=== PATIENT | female | born 1980 | race American Indian/Alaskan Native ===

== ENCOUNTER 2018-07-27 12:15 | Emergency (ER) | payer OTHER ==
--- NOTE | 2018-07-27 12:37 | EDM.PDOC ---
ED HPI GENERAL MEDICAL PROBLEM - General Chief Complaint: Skin Complaint Stated Complaint: PAIN SHINGLES Time Seen by Provider: 07/27/18 12:30 Source of Information: Reports: Patient History Limitations: Reports: No Limitations - History of Present Illness INITIAL COMMENTS - FREE TEXT/NARRATIVE: Patient developed painful shingles rash on 07/22/18, was prescribed Valtrex and Tramadol on 07/25/18. Since 07/25 patient has been having tremors and generalized muscle and joint pain. Also had one syncopal episode. Patient believes she may be having a reaction to the Valtrex. Location: Reports: Generalized Severity: Moderate (skin)midchest area Pain Score (Numeric/FACES): 9 - Related Data Allergies Allergy/AdvReac Type Severity Reaction Status Date / Time No Known Allergies Allergy Verified 07/27/18 12:28 Home Meds: Home Meds Acetaminophen/HYDROcodone [[place] 325-5 MG] 1 - 2 tab PO Q6H PRN #20 tab [Rx] buPROPion HCl [Wellbutrin SR] 150 mg PO BEDTIME 07/27/18 [History] valACYclovir [Valtrex] 1,000 mg PO DAILY 07/27/18 [History] Past Medical History Psychiatric History: Reports: Anxiety - Infectious Disease History Infectious Disease History: Reports: Shingles Social & Family History - Tobacco Use Smoking Status *Q: Current Every Day Smoker Tobacco Use Within Last Twelve Months: Cigarettes ED ROS GENERAL - Review of Systems Review Of Systems: See Below Constitutional: Reports: No Symptoms HEENT: Reports: No Symptoms Respiratory: Reports: No Symptoms Cardiovascular: Reports: No Symptoms Endocrine: Reports: No Symptoms GI/Abdominal: Reports: No Symptoms : Reports: No Symptoms Musculoskeletal: Reports: Joint Pain, Muscle Pain Skin: Reports: Rash (shingles right chest wall) Neurological: Reports: Tremors Psychiatric: Reports: Anxiety Hematologic/Lymphatic: Reports: No Symptoms Immunologic: Reports: No Symptoms ED EXAM, SKIN/RASH Exam: See Below Exam Limited By: No Limitations General Appearance: Alert, WD/WN, No Apparent Distress, Anxious Ears: Normal External Exam Throat/Mouth: No Airway Compromise Head: Atraumatic, Normocephalic Neck: Supple Respiratory/Chest: No Respiratory Distress, Lungs Clear, Normal Breath Sounds Cardiovascular: Regular Rate, Rhythm, No Murmur GI/Abdominal: No Distention Back Exam: Full Range of Motion Extremities: Normal Inspection, Normal Range of Motion, Normal Capillary Refill Neurological: Alert, Normal Cognition, No Motor/Sensory Deficits Psychiatric: Normal Affect, Normal Mood Skin: Warm, Dry, Intact, Other (mild vesicular rash right chest wall) Course - Vital Signs Last Recorded V/S: Last Vital Signs Temp 36.6 C 07/27/18 12:15 Pulse 62 07/27/18 12:15 Resp 17 07/27/18 12:15 BP 110/57 L 07/27/18 12:15 Pulse Ox 100 07/27/18 12:15 - Orders/Labs/Meds Labs: Laboratory Tests 07/27/18 07/27/18 07/27/18 Range/Units 12:45 12:45 12:45 WBC 4.1 L (4.5-12.0) X10-3/uL RBC 4.43 (3.23-5.20) x10(6)uL Hgb 13.1 (11.5-15.5) g/dL Hct 39.4 (30.0-51.3) % MCV 88.9 (80-96) fL MCH 29.5 (27.7-33.6) pg MCHC 33.2 (32.2-35.4) g/dL RDW 12.6 (11.5-15.5) % Plt Count 166 (125-369) X10(3)uL MPV 9.6 (7.4-10.4) fL Neut % (Auto) 62.0 (46-82) % Lymph % (Auto) 30.8 (13-37) % [place] % (Auto) 4.6 (4-12) % Eos % (Auto) 2 (1.0-5.0) % Baso % (Auto) 1 (0-2) % Neut # (Auto) 2.5 (1.6-8.3) # Lymph # (Auto) 1.3 (0.6-5.0) # [place] # (Auto) 0.2 (0.0-1.3) # Eos # (Auto) 0.1 (0.0-0.8) # Baso # (Auto) 0.0 (0.0-0.2) # Sodium 139 (135-145) mmol/L Potassium 3.7 (3.5-5.3) mmol/L Chloride 103 (100-110) mmol/L Carbon Dioxide 29 (21-32) mmol/L BUN 8 (7-18) mg/dL Creatinine 0.6 (0.55-1.02) mg/dL Est Cr Clr Drug Dosing TNP Estimated GFR (MDRD) > 60 (>60) BUN/Creatinine Ratio 13.3 (9-20) Glucose 103 (80-116) mg/dL Calcium 8.2 L (8.6-10.2) mg/dL Total Bilirubin 0.3 (0.1-1.3) mg/dL AST 12 (5-25) IU/L ALT 19 (12-36) U/L Alkaline Phosphatase 59 (56-112) IU/L Creatine Kinase 68 (60-160) IU/L Total Protein 7.0 (6.0-8.0) g/dL Albumin 3.4 L (3.5-5.2) g/dL Globulin 3.6 g/dL Albumin/Globulin Ratio 0.9 Meds: Medications Discontinued Medications Generic Name Dose Route Start Last Admin Trade Name Freq PRN Reason Stop Dose Admin Ketorolac Tromethamine 60 mg 07/27/18 13:20 07/27/18 13:23 Toradol IM 07/27/18 13:21 60 mg ONETIME ONE Administration Lorazepam 1 mg 07/27/18 12:44 07/27/18 13:24 Ativan PO 07/27/18 12:45 1 mg ONETIME ONE Administration - Re-Assessments/Exams Free Text/Narrative Re-Assessment/Exam: 07/27/18 13:59 Minimal improvement after Toradol and Ativan. I have advised patient to discontinue the Tramadol due to increase risk of seizures with concomitant use of Wellbutrin. Arthralgias most likely due to side effect of Valtrex. I will prescribe [place], but patient is advised not to take Ativan with this medication due to risk of respiratory depression. Departure - Departure Time of Disposition: 14:02 Disposition: Home, Self-Care 01 Condition: Good Clinical Impression: Arthralgia Qualifiers: Joint pain location: unspecified Qualified Code(s): M25.50 - Pain in unspecified joint - Discharge Information *PRESCRIPTION DRUG MONITORING PROGRAM REVIEWED*: Yes *COPY OF PRESCRIPTION DRUG MONITORING REPORT IN PATIENT DAYO: No Prescriptions: Acetaminophen/HYDROcodone [[place] 325-5 MG] 1 - 2 tab PO Q6H PRN #20 tab PRN Reason: Pain Instructions: Joint Pain, [id number] Forms: ED Department Discharge Additional Instructions: Discontinue the Tramadol due to increase risk of seizures. Joint pain is most likely due to side effect of Valtrex. Do not to take Ativan with the [place] due to risk of respiratory depression. However, you may take Ibuprofen with this medication as needed for pain. Follow up with your primary physician in 2-3 days. Return to the ER as needed.
[2018-07-27] MEDS ORDERED: LORazepam 1 MG Tab PO ONE (12:44)
[2018-07-27] MEDS ORDERED: Ketorolac 60 MG/2 ML SDV IM ONE (13:20)
== END 2018-07-27 14:18 | disposition home or self-care (01) ==
LOC: FB.ED 12:15
DX: M25.50 Pain in unspecified joint (principal); R21 Rash and other nonspecific skin eruption; F17.210 Nicotine dependence, cigarettes, uncomplicated
CPT/HCPCS: 36415; 80053; 82550; 85025; 96372; 99283; A9270-GY; J1885

== ENCOUNTER 2019-11-21 20:25 | Emergency (ER) | payer OTHER ==
[2019-11-21] MEDS ORDERED: Acetaminophen/HYDROcodone 325-5 MG Tab PO ONE (20:26)
[2019-11-21] MEDS ORDERED: Ondansetron 4 MG/2 ML SDV IM ONE (21:30)
[2019-11-21] MEDS ORDERED: Ketorolac 60 MG/2 ML SDV IM ONE (21:30)
[2019-11-21] MEDS ORDERED: Penicillin V Potassium 500 MG Tab PO ONE (21:31)
--- NOTE | 2019-11-21 21:50 | EDM.PDOC ---
ED HPI GENERAL MEDICAL PROBLEM - General Chief Complaint: General Stated Complaint: TOOTH PAIN; NAUSEA Time Seen by Provider: 11/21/19 21:47 Source of Information: Reports: Patient History Limitations: Reports: No Limitations - History of Present Illness INITIAL COMMENTS - FREE TEXT/NARRATIVE: Presents with dental pain x 2 months, worse x 2 days. Missed a DDS appt yesterday for root canal due to adverse weather conditions (izz), rescheduled for 11/25/19. Has been taking Tylenol w/o improvement. Also complains of typical migraine headache, onset today, associated with photophobia and N/V. Denies fevers. 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 Denies: NSAIDS - Related Data Allergies Allergy/AdvReac Type Severity Reaction Status Date / Time No Known Allergies Allergy Verified 11/21/19 20:51 Home Meds: Home Meds Acetaminophen/HYDROcodone [[place] 325-5 MG] 1 - 2 tab PO Q6H PRN #16 tab [Rx] Penicillin V Potassium 500 mg PO Q6HR #40 tab 11/21/19 [Rx] buPROPion [buPROPion XL] 300 mg PO DAILY 11/21/19 [History] Past Medical History MEDICATION AID History: Reports: Neurological History: Reports: Migraines Psychiatric History: Reports: Anxiety Dermatologic History: Reports: Other (See Below) Other Dermatologic History: shingles - Infectious Disease History Infectious Disease History: Reports: Shingles Social & Family History - Family History Family Medical History: Noncontributory - Caffeine Use Caffeine Use: Reports: Coffee, Soda ED ROS GENERAL - Review of Systems Review Of Systems: Comprehensive ROS is negative, except as noted in HPI. ED EXAM, GENERAL - Physical Exam Exam: See Below Exam Limited By: No Limitations General Appearance: Alert, WD/WN, No Apparent Distress Eye Exam: Bilateral Eye: EOMI, PERRL Throat/Mouth: No Airway Compromise, Other (Right upper 2nd molar is fractured and tender, no gingival swelling) Head: Atraumatic, Normocephalic Neck: Supple, Full Range of Motion Respiratory/Chest: No Respiratory Distress Back Exam: Full Range of Motion Extremities: Normal Range of Motion Neurological: Alert, Normal Cognition Psychiatric: Normal Affect, Normal Mood Skin Exam: Warm, Dry, Intact Course - Vital Signs Last Recorded V/S: Last Vital Signs Temp 36.8 C 11/21/19 20:25 Pulse 71 11/21/19 20:25 Resp 18 11/21/19 20:25 BP 129/88 11/21/19 20:25 Pulse Ox 98 11/21/19 20:25 - Orders/Labs/Meds Orders: Active Orders 24 hr Category Date Time Status Penicillin V Potassium [Veetids] Med 11/21/19 22:30 Once 500 mg PO .ONCE ONE Medication Orders Penicillin V Potassium (Veetids) 500 mg PO .ONCE ONE Stop: 11/21/19 22:31 Last Admin: 11/21/19 22:24 Dose: 500 mg Meds: Medications Generic Name Dose Route Start Last Admin Trade Name Freq PRN Reason Stop Dose Admin Penicillin V Potassium 500 mg 11/21/19 22:30 11/21/19 22:24 Veetids PO 11/21/19 22:31 500 mg .ONCE ONE Administration Discontinued Medications Generic Name Dose Route Start Last Admin Trade Name Freq PRN Reason Stop Dose Admin Ketorolac Tromethamine 60 mg 11/21/19 21:30 11/21/19 22:04 Toradol IM 11/21/19 21:31 60 mg ONETIME ONE Administration Ondansetron HCl 4 mg 11/21/19 21:30 11/21/19 22:05 Zofran IM 11/21/19 21:31 4 mg ONETIME ONE Administration Penicillin V Potassium 500 mg 11/21/19 21:31 11/21/19 22:24 Veetids PO 11/21/19 21:32 Not Given .ONCE ONE - Re-Assessments/Exams Free Text/Narrative Re-Assessment/Exam: 11/21/19 22:29 Symptoms improved after Toradol 60mg IM and Zofran 4mg IM. Departure - Departure Time of Disposition: 22:33 Disposition: Home, Self-Care 01 Condition: Good Clinical Impression: Pain, dental Migraine Qualifiers: Migraine type: unspecified Status migrainosus presence: without status migrainosus Intractability: not intractable Qualified Code(s): G43.909 - Migraine, unspecified, not intractable, without status migrainosus - Discharge Information *PRESCRIPTION DRUG MONITORING PROGRAM REVIEWED*: Yes *COPY OF PRESCRIPTION DRUG MONITORING REPORT IN PATIENT DAYO: No Prescriptions: Penicillin V Potassium 500 mg PO Q6HR #40 tab Acetaminophen/HYDROcodone [[place] 325-5 MG] 1 - 2 tab PO Q6H PRN #16 tab PRN Reason: Pain Instructions: Migraine Headache, [id number], Diet and Dental Disease Referrals: Jay Haddad MD [Primary Care Provider] - Forms: ED Department Discharge Additional Instructions: Take Quin[place] and Penicillin as directed. Do not take Acetaminophen containing medication while taking Quinby. Keep the appointment with your Dentist on . Return to the ER if symptoms worsen. Sepsis Event Note - Focused Exam Vital Signs: Vital Signs Temp Pulse Resp BP Pulse Ox 11/21/19 20:25 36.8 C 71 18 129/88 98 Date Exam was Performed: 11/21/19 Time Exam was Performed: 22:29 - My Orders Last 24 Hours: My Active Orders 11/21/19 22:30 Penicillin V Potassium [Veetids] 500 mg PO .ONCE ONE - Assessment/Plan Last 24 Hours: My Active Orders 11/21/19 22:30 Penicillin V Potassium [Veetids] 500 mg PO .ONCE ONE
[2019-11-21] MEDS ORDERED: Penicillin V Potassium 250 MG Tab PO ONE (22:30)
== END 2019-11-21 22:50 | disposition home or self-care (01) ==
LOC: FB.ED 20:25
DX: G43.909 Migraine, unspecified, not intractable, without status migrainosus (principal); K03.81 Cracked tooth; F41.9 Anxiety disorder, unspecified; Z79.899 Other long term (current) drug therapy
CPT/HCPCS: 96372; 99283; A9270; J1885; J2405

== ENCOUNTER 2020-01-20 12:39 | Emergency (ER) | payer OTHER ==
[2020-01-20] MEDS ORDERED: Sodium Chloride 0.9% 10 ML Syringe FLUSH PRN (13:05)
[2020-01-20] MEDS ORDERED: Ketorolac 30 MG/ML SDV IVPUSH ONE (13:07)
[2020-01-20] MEDS ORDERED: Ondansetron 4 MG/2 ML SDV IVPUSH ONE (13:07)
[2020-01-20] MEDS ORDERED: SUMAtriptan 6 MG/0.5 ML SDV SUBCUT ONE (13:07)
[2020-01-20] MEDS ORDERED: Sodium Chloride 0.9% 1,000 ML IV SCH (13:15)
--- NOTE | 2020-01-20 14:03 | EDM.PDOC ---
ED HPI GENERAL MEDICAL PROBLEM - General Chief Complaint: Headache Stated Complaint: MIGRAINE Time Seen by Provider: 01/20/20 12:50 Source of Information: Reports: Patient History Limitations: Reports: No Limitations - History of Present Illness INITIAL COMMENTS - FREE TEXT/NARRATIVE: Patient presented to the ED because of bi temporal headache,05/13 with associated N/V . There is no fever or chills or neck stiffness. The last time she had an attack of migraine was almost a year ago. she took imitrex 50 mg po x1 without any relief. 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 Female Surgical History: Reports: Hysterectomy Social & Family History - Family History Family Medical History: Noncontributory - Tobacco Use Smoking Status *Q: Current Some Day Smoker Years of Tobacco use: 12 Packs/Tins Daily: 0.5 - Caffeine Use Caffeine Use: Reports: None - Recreational Drug Use Recreational Drug Use: No ED ROS GENERAL - Review of Systems Review Of Systems: See Below Constitutional: Reports: No Symptoms HEENT: Reports: No Symptoms Respiratory: Reports: No Symptoms Cardiovascular: Reports: No Symptoms Endocrine: Reports: No Symptoms GI/Abdominal: Reports: Nausea, Vomiting : Reports: No Symptoms Musculoskeletal: Reports: No Symptoms Skin: Reports: No Symptoms Neurological: Reports: No Symptoms Psychiatric: Reports: No Symptoms Hematologic/Lymphatic: Reports: No Symptoms - Physical Exam Exam: See Below Exam Limited By: No Limitations General Appearance: Alert, No Apparent Distress Ears: Normal External Exam, Normal Canal Nose: Normal Inspection, Normal Mucosa Throat/Mouth: Normal Inspection, Normal Lips, Normal Teeth Head Exam: Atraumatic, Normocephalic Neck: Normal Inspection, Supple, Non-Tender, Full Range of Motion Respiratory/Chest: No Respiratory Distress, Lungs Clear, Normal Breath Sounds Cardiovascular: Normal Peripheral Pulses, Regular Rate, Rhythm GI/Abdominal: Normal Bowel Sounds, Soft, Non-Tender, No Organomegaly (Female) Exam: Normal External Exam, Normal Speculum Exam, Normal Bimanual Exam Neuro Exam (Abbreviated): Alert, Oriented, CN II-XII Intact, Normal Cognition, Normal Gait Course - Vital Signs Text/Narrative:: labs reviewed and discussed with patient and verbalized full understanding NS 1 L bolus zofran 4 mg IV x1 toradol 30 mg IV x1 imitrex 6 mg SC x1 Last Recorded V/S: Last Vital Signs Temp 36.7 C 01/20/20 12:40 Pulse 88 01/20/20 12:40 Resp 18 01/20/20 12:40 BP 125/82 01/20/20 12:40 Pulse Ox 100 01/20/20 12:40 - Orders/Labs/Meds Orders: Active Orders 24 hr Category Date Time Status Sodium Chloride 0.9% [Normal Saline] 1,000 ml Med 01/20/20 13:15 Active IV ASDIRECTED Sodium Chloride 0.9% [Saline Flush] Med 01/20/20 13:05 Active 10 ml FLUSH ASDIRECTED PRN Saline Lock Insert [OM.PC] Routine Oth 01/20/20 13:05 Ordered Medication Orders Sodium Chloride (Normal Saline) 1,000 mls @ 999 mls/hr IV ASDIRECTED LUDIN Last Admin: 01/20/20 13:20 Dose: 999 mls/hr Sodium Chloride (Saline Flush) 10 ml FLUSH ASDIRECTED PRN PRN Reason: Keep Vein Open Last Admin: 01/20/20 12:55 Dose: 10 ml Labs: Laboratory Tests 01/20/20 01/20/20 Range/Units 13:19 13:19 WBC 9.0 (4.5-12.0) X10-3/uL RBC 4.73 (3.23-5.20) x10(6)uL Hgb 13.4 (11.5-15.5) g/dL Hct 41.1 (30.0-51.3) % MCV 86.9 (80-96) fL MCH 28.3 (27.7-33.6) pg MCHC 32.5 (32.2-35.4) g/dL RDW 12.9 (11.5-15.5) % Plt Count 198 (125-369) X10(3)uL MPV 9.3 (7.4-10.4) fL Neut % (Auto) 73.1 (46-82) % Lymph % (Auto) 18.5 (13-37) % [place] % (Auto) 6.1 (4-12) % Eos % (Auto) 1 (1.0-5.0) % Baso % (Auto) 2 (0-2) % Neut # (Auto) 6.6 (1.6-8.3) # Lymph # (Auto) 1.7 (0.6-5.0) # [place] # (Auto) 0.5 (0.0-1.3) # Eos # (Auto) 0.1 (0.0-0.8) # Baso # (Auto) 0.1 (0.0-0.2) # Sodium 142 (135-145) mmol/L Potassium 3.5 (3.5-5.3) mmol/L Chloride 102 (100-110) mmol/L Carbon Dioxide 30 (21-32) mmol/L BUN 13 (7-18) mg/dL Creatinine 0.6 (0.55-1.02) mg/dL Est Cr Clr Drug Dosing 114.40 mL/min Estimated GFR (MDRD) > 60 (>60) BUN/Creatinine Ratio 21.7 H (9-20) Glucose 105 (80-116) mg/dL Calcium 8.7 (8.6-10.2) mg/dL Meds: Medications Generic Name Dose Route Start Last Admin Trade Name Freq PRN Reason Stop Dose Admin Sodium Chloride 1,000 mls @ 999 mls/hr 01/20/20 13:15 01/20/20 13:20 Normal Saline IV 999 mls/hr ASDIRECTED LUDIN Administration Sodium Chloride 10 ml 01/20/20 13:05 01/20/20 12:55 Saline Flush FLUSH 10 ml ASDIRECTED PRN Administration Keep Vein Open Discontinued Medications Generic Name Dose Route Start Last Admin Trade Name [place] PRN Reason Stop Dose Admin Ketorolac Tromethamine 30 mg 01/20/20 13:07 01/20/20 13:24 Toradol IVPUSH 01/20/20 13:08 30 mg ONETIME ONE Administration Ondansetron HCl 4 mg 01/20/20 13:07 01/20/20 13:24 Zofran IVPUSH 01/20/20 13:08 4 mg ONETIME ONE Administration Sumatriptan Succinate 6 mg 01/20/20 13:07 01/20/20 13:23 Imitrex SUBCUT 01/20/20 13:08 6 mg ONETIME ONE Administration Departure - Departure Time of Disposition: 14:10 Disposition: Home, Self-Care 01 Condition: Good Clinical Impression: Migraine - Discharge Information Prescriptions: Ondansetron [Zofran ODT] 4 mg PO Q4H PRN #5 tab.dis PRN Reason: Nausea Referrals: Jay Haddad MD [Primary Care Provider] - Additional Instructions: please read discharge instructions on migraine increase oral fluids take ibuprofen 800 mg with tylenol 1000 mg every 8 hours as needed for pain imitrex 100 mg once daily, may take another 100 mg 2 hours after the first dose if your headache is not better. follow up as needed Sepsis Event Note - Evaluation Sepsis Screening Result: No Definite Risk - Focused Exam Vital Signs: Vital Signs Temp Pulse Resp BP Pulse Ox 01/20/20 12:40 36.7 C 88 18 125/82 100 Date Exam was Performed: 01/20/20 Time Exam was Performed: 13:58 - My Orders Last 24 Hours: My Active Orders 01/20/20 13:05 Sodium Chloride 0.9% [Saline Flush] 10 ml FLUSH ASDIRECTED PRN Saline Lock Insert [OM.PC] Routine 01/20/20 13:15 Sodium Chloride 0.9% [Normal Saline] 1,000 ml IV ASDIRECTED - Assessment/Plan Last 24 Hours: My Active Orders 01/20/20 13:05 Sodium Chloride 0.9% [Saline Flush] 10 ml FLUSH ASDIRECTED PRN Saline Lock Insert [OM.PC] Routine 01/20/20 13:15 Sodium Chloride 0.9% [Normal Saline] 1,000 ml IV ASDIRECTED
== END 2020-01-20 14:20 | disposition home or self-care (01) ==
LOC: FB.ED 12:39
DX: G43.909 Migraine, unspecified, not intractable, without status migrainosus (principal); F17.210 Nicotine dependence, cigarettes, uncomplicated; F41.9 Anxiety disorder, unspecified; F32.9 Major depressive disorder, single episode, unspecified; Z79.899 Other long term (current) drug therapy
CPT/HCPCS: 36415; 80048; 85025; 96361; 96372; 96374; 96375; 99284-25; J1885; J2405; J3030; J7030

== ENCOUNTER 2020-02-04 19:12 | Emergency (ER) | payer OTHER ==
[2020-02-04] MEDS ORDERED: Ketorolac 30 MG/ML SDV IVPUSH ONE (19:39)
[2020-02-04] MEDS ORDERED: SUMAtriptan 6 MG/0.5 ML SDV SUBCUT ONE (19:39)
[2020-02-04] MEDS ORDERED: hydrOXYzine HCl 50 MG/ML SDV IM ONE (19:39)
[2020-02-04] MEDS ORDERED: Sodium Chloride 0.9% 1,000 ML IV SCH (19:45)
--- NOTE | 2020-02-04 20:06 | EDM.PDOC ---
ED HPI GENERAL MEDICAL PROBLEM - General Stated Complaint: MIGRAINE Time Seen by Provider: 02/04/20 19:30 Source of Information: Reports: Patient History Limitations: Reports: No Limitations - History of Present Illness INITIAL COMMENTS - FREE TEXT/NARRATIVE: Patient presented to the ED because of headache behind the eyeball and anabaptist. Throbbing,/ with associated N/V. There is no associated fever,chills or neck stiffness. She took her imitrex and OTC tylenol without any relief. Headache Pain Score (Numeric/FACES): 5 - Related Data Allergies Allergy/AdvReac Type Severity Reaction Status Date / Time No Known Allergies Allergy Verified 02/04/20 19:49 Home Meds: Home Meds Ondansetron [Zofran ODT] 4 mg PO Q4H PRN #5 tab.dis 01/20/20 [Rx] SUMAtriptan [Imitrex] 100 mg PO Q4HR PRN 01/20/20 [History] buPROPion [Wellbutrin] 300 mg PO DAILY 01/20/20 [History] Butalb/Acetaminophen/Caffeine [Esgic 50-325-40 mg Tablet] 2 each PO Q6H PRN #30 tablet 02/04/20 [Rx] ClonazePAM [KlonoPIN] 0.5 mg PO DAILY 02/04/20 [History] SUMAtriptan [Imitrex] 6 mg SUBCUT ONETIME PRN #5 sdv 02/04/20 [Rx] hydrOXYzine pamoate [Vistaril] 50 mg PO Q6H PRN #30 cap 02/04/20 [Rx] Past Medical History - Past Health History Medical/Surgical History: Denies Medical/Surgical History HEENT History: Reports: Other (See Below) 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 Female Surgical History: Reports: Hysterectomy Social & Family History - Family History Family Medical History: Noncontributory - Caffeine Use Caffeine Use: Reports: None ED ROS GENERAL - Review of Systems Review Of Systems: See Below Constitutional: Reports: No Symptoms HEENT: Reports: No Symptoms Respiratory: Reports: No Symptoms Cardiovascular: Reports: No Symptoms Endocrine: Reports: No Symptoms GI/Abdominal: Reports: Nausea, Vomiting Musculoskeletal: Reports: No Symptoms, Neck Pain Skin: Reports: No Symptoms Neurological: Reports: Headache Psychiatric: Reports: No Symptoms Hematologic/Lymphatic: Reports: No Symptoms - Physical Exam Exam: See Below Exam Limited By: No Limitations General Appearance: Alert, No Apparent Distress Ears: Normal External Exam, Normal Canal Nose: Normal Inspection, Normal Mucosa Throat/Mouth: Normal Inspection, Normal Lips, Normal Teeth Head Exam: Atraumatic, Normocephalic Neck: Normal Inspection, Supple, Non-Tender, Full Range of Motion Respiratory/Chest: No Respiratory Distress, Lungs Clear, Normal Breath Sounds Cardiovascular: Normal Peripheral Pulses, Regular Rate, Rhythm, No Edema GI/Abdominal: Normal Bowel Sounds, Soft, Non-Tender, No Distention, No Abnormal Bruit Extremities: Normal Inspection Psychiatric: Normal Affect Skin Exam: Warm Course - Vital Signs Text/Narrative:: labs reviewed with the patient and verbalized full understanding NS 1 L bolus Vistaril 50 mg IM imitrex 6 mg SC x1 Last Recorded V/S: Last Vital Signs Temp 36.9 C 02/04/20 20:50 Pulse 67 02/04/20 20:50 Resp 16 02/04/20 20:50 BP 112/77 02/04/20 20:50 Pulse Ox 97 02/04/20 20:50 - Orders/Labs/Meds Labs: Laboratory Tests 02/04/20 02/04/20 Range/Units 19:52 19:52 WBC 7.9 (4.5-12.0) X10-3/uL RBC 4.22 (3.23-5.20) x10(6)uL Hgb 12.4 (11.5-15.5) g/dL Hct 36.2 (30.0-51.3) % MCV 85.7 (80-96) fL MCH 29.4 (27.7-33.6) pg MCHC 34.3 (32.2-35.4) g/dL RDW 13.0 (11.5-15.5) % Plt Count 212 (125-369) X10(3)uL MPV 9.3 (7.4-10.4) fL Neut % (Auto) 62.8 (46-82) % Lymph % (Auto) 30.2 (13-37) % [place] % (Auto) 4.8 (4-12) % Eos % (Auto) 1 (1.0-5.0) % Baso % (Auto) 1 (0-2) % Neut # (Auto) 4.9 (1.6-8.3) # Lymph # (Auto) 2.4 (0.6-5.0) # [place] # (Auto) 0.4 (0.0-1.3) # Eos # (Auto) 0.1 (0.0-0.8) # Baso # (Auto) 0.1 (0.0-0.2) # Sodium 142 (135-145) mmol/L Potassium 3.5 (3.5-5.3) mmol/L Chloride 104 (100-110) mmol/L Carbon Dioxide 29 (21-32) mmol/L BUN 10 (7-18) mg/dL Creatinine 0.7 (0.55-1.02) mg/dL Est Cr Clr Drug Dosing 98.05 mL/min Estimated GFR (MDRD) > 60 (>60) BUN/Creatinine Ratio 14.3 (9-20) Glucose 87 (80-116) mg/dL Calcium 7.7 L (8.6-10.2) mg/dL Meds: Medications Discontinued Medications Generic Name Dose Route Start Last Admin Trade Name Freq PRN Reason Stop Dose Admin Hydroxyzine HCl 50 mg 02/04/20 19:39 02/04/20 20:14 Vistaril IM 02/04/20 19:40 50 mg ONETIME ONE Administration Sodium Chloride 1,000 mls @ 999 mls/hr 02/04/20 19:45 02/04/20 19:45 Normal Saline IV 999 mls/hr ASDIRECTED LUDIN Administration Ketorolac Tromethamine 30 mg 02/04/20 19:39 02/04/20 20:14 Toradol IVPUSH 02/04/20 19:40 30 mg ONETIME ONE Administration Sumatriptan Succinate 6 mg 02/04/20 19:39 02/04/20 20:13 Imitrex SUBCUT 02/04/20 19:40 6 mg ONETIME ONE Administration Departure - Departure Time of Disposition: 21:00 Disposition: Home, Self-Care 01 Condition: Good Clinical Impression: Migraine - Discharge Information Prescriptions: Butalb/Acetaminophen/Caffeine [Esgic 50-325-40 mg Tablet] 2 each PO Q6H PRN #30 tablet PRN Reason: Headache hydrOXYzine pamoate [Vistaril] 50 mg PO Q6H PRN #30 cap PRN Reason: Headache SUMAtriptan [Imitrex] 6 mg SUBCUT ONETIME PRN #5 sdv PRN Reason: migraine Instructions: Subcutaneous Injection Instructions Using a Syringe and Vial, Migraine Headache Referrals: PCP,None [Primary Care Provider] - Forms: ED Department Discharge Additional Instructions: please read discharge instructions on migraine imitrex 6 mg subcutaneous once as needed whenever you have a migraine that you can't tolerate vistaril/hydroxyzine 50 mg every 6 hours as needed for nausea/vomiting,anxiety and sleep Esgig plus/butalbutal, take 2 tablets every 6 hours as needed for headache follow up as needed Sepsis Event Note - Focused Exam Date Exam was Performed: 02/05/20 Time Exam was Performed: 11:23
== END 2020-02-04 20:50 | disposition home or self-care (01) ==
LOC: FB.ED 19:12
DX: G43.909 Migraine, unspecified, not intractable, without status migrainosus (principal)
CPT/HCPCS: 36415; 80048; 85025; 96361; 96372; 96374; 99284; J1885; J3030; J3410; J7030

== ENCOUNTER 2022-01-09 17:38 | Emergency (ER) | payer OTHER ==
[2022-01-09] MEDS ORDERED: LORazepam 2 MG/ML SDV IM STA (20:06)
[2022-01-09] MEDS ORDERED: Ketorolac 30 MG/ML SDV IM STA (20:06)
[2022-01-09] MEDS ORDERED: Ondansetron 4 MG Tab.DIS PO ONE (20:06)
[2022-01-09] MEDS ORDERED: Acetaminophen/HYDROcodone 325-5 MG Tab PO STA (22:52)
[2022-01-09] MEDS ORDERED: Cyclobenzaprine 10 MG Tab PO STA (22:52)
== END 2022-01-09 23:00 | disposition home or self-care (01) ==
LOC: FB.ED 17:38
DX: S06.6X0A Traumatic subarachnoid hemorrhage without loss of consciousness, initial encounter (principal); S00.83XA Contusion of other part of head, initial encounter; Z72.0 Tobacco use; Y04.0XXA Assault by unarmed brawl or fight, initial encounter
CPT/HCPCS: 36415; 70450; 71100; 72072; 72100; 72125; 73562; 80053; 80307; 81001; 81025; 85025; 85610; 85730; 96372; 99285; A9270; J1885; J2060; Q0162

== ENCOUNTER 2025-02-23 13:21 | Emergency (ER) | payer OTHER ==
[2025-02-23 15:14] LABS: BASOPHILS ABSOLUTE AUTO 0.1 x10-3/uL (0.0-0.1); BASOPHILS PERCENT AUTO 0.9 % (0.2-1.5); EOSINOPHILS ABSOLUTE AUTO 0.2 x10-3/uL (0.0-0.8); EOSINOPHILS PERCENT AUTO 2.5 % (0.6-8.1); HEMATOCRIT 41.1 % (34.2-48.2); HEMOGLOBIN 13.7 g/dL (11.4-15.5); LYMPHOCYTES ABSOLUTE AUTO 2.4 x10-3/uL (1.0-4.4); LYMPHOCYTES PERCENT AUTO 25.8 % (18.4-52.1); MEAN CORPUSCULAR HEMOGLOBIN 27.4 pg (23.9-33.9); MEAN CORPUSCULAR HGB CONC 33.4 g/dL (31.9-34.8); MEAN CORPUSCULAR VOLUME 82.2 fL (76.7-100.5); MEAN PLATELET VOLUME 9.3 fL (7.1-12.4); MONOCYTES ABSOLUTE AUTO 0.6 x10-3/uL (0.3-1.0); MONOCYTES PERCENT AUTO 6.6 % (4.4-15.7); NEUTROPHILS ABSOLUTE AUTO 5.9 x10-3/uL (1.5-6.3); NEUTROPHILS PERCENT AUTO 64.2 % (30.8-76.2); PLATELET COUNT,PLT 219 x10(3)uL (151-488); RED CELL DISTRIBUTION WIDTH 15.1 % (12.3-16.5); WHITE BLOOD CELL COUNT,WBC 9.2 x10-3/uL (3.0-10.3)
[2025-02-23 15:20] LABS: ETHANOL BLOOD MEDICAL < 0.03 % (<0.03); LIPASE 21 U/L (16-77)
[2025-02-23 15:22] LABS: AMPHETAMINES SCREEN, URINE POSITIVE (NEGATIVE); BARBITURATE SCREEN,URINE NEGATIVE (NEGATIVE); BENZODIAZEPINES SCREEN,URINE NEGATIVE (NEGATIVE); METHADONE SCREEN, URINE NEGATIVE (NEGATIVE); METHAMPHETAMINE SCREEN, URINE POSITIVE (NEGATIVE); OXYCODONE SCREEN,URINE NEGATIVE (NEGATIVE); THC SCREEN,URINE POSITIVE (NEGATIVE)
[2025-02-23 15:23] LABS: BUPRENORPHINE SCREEN,URINE NEGATIVE (NEGATIVE)
[2025-02-23 15:28] LABS: ALANINE AMINOTRANSFERASE,ALT 29 U/L (12-36); ALBUMIN 3.7 g/dL (3.5-5.2); ALKALINE PHOSPHATASE 106 IU/L (56-112); ASPARTATE AMNIOTRANSFERASE,AST 19 IU/L (5-25); BILIRUBIN TOTAL 0.6 mg/dL (0.1-1.3); BLOOD UREA NITROGEN,BUN 11 mg/dL (7-18); BUN/CREATININE RATIO 13.8 (9-20); CARBON DIOXIDE,CO2 28 mmol/L (21-32); CHLORIDE,CL 104 mmol/L (100-110); CREATINE KINASE,CK 46 IU/L (60-160); CREATININE 0.8 mg/dL (0.55-1.02); ESTIMATED GFR 94 mL/min (>60); GLUCOSE RANDOM 106 mg/dL (80-116); MAGNESIUM 1.7 mg/dL (1.8-2.5); POTASSIUM,K 3.9 mmol/L (3.5-5.3); PROTEIN TOTAL,TP 7.4 g/dL (6.0-8.0); SODIUM,NA 139 mmol/L (135-145)
== END 2025-02-23 16:07 ==
LOC: FB.ED 13:21
DX: F15.10 Other stimulant abuse, uncomplicated (principal); F12.10 Cannabis abuse, uncomplicated; F41.1 Generalized anxiety disorder; Z79.899 Other long term (current) drug therapy
CPT/HCPCS: 36415; 80053; 80307; 82550; 83690; 83735; 84100; 85025; 99283; 99284; A9270

== ENCOUNTER 2025-02-24 02:51 | Emergency (ER) | payer OTHER ==
[2025-02-24] MEDS: Ketorolac 30 MG/ML SDV IM ONE (03:12)
[2025-02-24] MEDS: ClonazePAM 0.5 MG Tab PO ONE (04:19)
== END 2025-02-24 04:25 ==
LOC: FB.ED 02:51
DX: R07.9 Chest pain, unspecified (principal); F11.10 Opioid abuse, uncomplicated; Z79.899 Other long term (current) drug therapy; F17.210 Nicotine dependence, cigarettes, uncomplicated; Z90.710 Acquired absence of both cervix and uterus
CPT/HCPCS: 36415; 71045; 84484; 96372; 99285; A9270-GY; J1885

== ENCOUNTER 2025-03-02 03:57 | Emergency (ER) | payer OTHER ==
[2025-03-02] MEDS: hydrOXYzine HCl 50 MG/ML SDV IM ONE (04:26)
== END 2025-03-02 06:27 | disposition home or self-care (01) ==
LOC: FB.ED 03:57
DX: F41.0 Panic disorder [episodic paroxysmal anxiety] (principal); F41.1 Generalized anxiety disorder; F17.210 Nicotine dependence, cigarettes, uncomplicated
CPT/HCPCS: 96372; 99284; J3410